=== PATIENT | male | born 1975 | race Two or more races ===

== ENCOUNTER → 2017-08-31 | Outpatient (CLI) | payer OTHER ==
[~2017-08-31] MED LIST: CIPRO500 MG PO; KETO10TA2 PO
== END | disposition home or self-care (01) ==
LOC: NUCLEAR 10:00
DX: I20.1 Angina pectoris with documented spasm (principal)

== ENCOUNTER 2017-11-20 08:24 | Emergency (ER) | payer OTHER ==
[~2017-11-20] VITALS: Ht 172.7 cm; Wt 83.9 kg
== END 2017-11-20 14:46 | disposition home or self-care (01) ==
LOC: ER 08:24
DX: R00.2 Palpitations (principal); F06.4 Anxiety disorder due to known physiological condition